=== PATIENT | male | born 1950 | race Caucasian/White ===

== ENCOUNTER → 2019-07-24 | Outpatient (REF) | payer MEDICARE ==
[2019-07-24 14:12] LABS: RHEUMATOID FACTOR QUANT < 10.0 IU/ML (<15.0)
[2019-07-24 14:24] LABS: VITAMIN B12 LEVEL 877 PG/ML (247-911)
[2019-07-24 14:26] LABS: FOLATE 9.3 NG/ML (>5.4); HEMOGLOBIN A1c 5.8 %
[2019-07-28 14:26] LABS: ANCA-ATYPICAL <1:20 titer (Neg:<1:20); ANTI DS-DNA AB <1:10 titer (.); ANTINUCLEAR ANTIBODIES DIRECT Negative (Negative); CYTOPLASMIC NEUTROP AB ANCA-C <1:20 titer (Neg:<1:20); Lyme Disease IgG/IgM Antibodie <0.91 ISR (0.00-0.90); Lyme Disease IgM Ab Quantitati <0.80 index (0.00-0.79); PERINUCLEAR AB ANCA-P <1:20 titer (Neg:<1:20); SJOGREN'S ANTI SS-A <0.2 AI (0.0-0.9); SJOGREN'S ANTI SS-B 0.4 AI (0.0-0.9); VITAMIN B1 LEVEL WHOLE BLOOD 85.7 nmol/L (66.5-200.0); VITAMIN B6,PYRIDOXAL PHOSPHATE 17.6 ug/L (5.3-46.7); VITAMIN E(ALPHA TOCOPHEROL) 10.1 mg/L (9.0-29.0); VITAMIN E(GAMMA TOCOPHEROL) 0.5 mg/L (0.5-4.9)
== END ==
LOC: M LABDRAW1 09:58
PROVIDERS: ATTEND Psychiatry & Neurology Neurology
DX: G31.9 Degenerative disease of nervous system, unspecified (principal)

== ENCOUNTER 2022-12-06 09:45 | Inpatient (IN) | payer BC, OTHER, MEDICARE ==
[~2022-12-06] VITALS: Ht 180.3 cm; Wt 86.8 kg
[2022-12-06 10:41] LABS: BASO % 0.2 % (0.0-1.0); EOS # 0.1 10^3/uL (0.0-0.5); EOS % 1.8 % (0.0-3.0); HEMATOCRIT 39.8 % (42.0-52.0); HEMOGLOBIN 13.1 g/dl (13.5-17.5); LYMPH # 0.8 10^3/uL (1.5-5.0); LYMPH % 15.9 % (24.0-44.0); MEAN CORPUSCULAR HEMOGLOBIN 34.4 pg (27.0-33.0); MEAN CORPUSCULAR HGB CONC 32.9 g/dl (32.0-36.5); MEAN CORPUSCULAR VOLUME 104.5 fl (80.0-96.0); MONO # 0.4 10^3/uL (0.0-0.8); MONO % 8.3 % (2.0-8.0); NEUTROPHILS # 3.6 10^3/uL (1.5-8.5); NEUTROPHILS % 73.4 % (36.0-66.0); PLATELET COUNT, AUTOMATED 152 10^3/uL (150-450); RED BLOOD COUNT 3.81 10^6/uL (4.30-6.10)
[2022-12-06 10:53] LABS: INR 1.31; PROTHROMBIN TIME 16.5 SECONDS (12.5-14.5)
[2022-12-06] MEDS ORDERED: LORazepam 2 MG/ML 1ML VIAL IV STA (10:53)
[2022-12-06 10:54] LABS: PARTIAL THROMBOPLASTIN TIME 31.7 SECONDS (24.8-34.2)
[2022-12-06 11:13] LABS: LIPASE 52 U/L (12-53)
[2022-12-06 11:15] LABS: ALBUMIN 3.3 G/DL (3.2-5.2); ALKALINE PHOSPHATASE 69 U/L (46-116); ALT/SGPT 23 U/L (7.0-40); AST/SGOT 26 U/L (<34); BILIRUBIN,DIRECT 0.4 MG/DL (<0.4); BILIRUBIN,TOTAL 1.1 MG/DL (0.3-1.2); BLOOD UREA NITROGEN 26 MG/DL (9-23); CALCIUM LEVEL 8.3 MG/DL (8.3-10.6); CARBON DIOXIDE LEVEL 27 MMOL/L (20-31); CHLORIDE LEVEL 106 MMOL/L (98-107); CK-MB VALUE MASS 1.5 NG/ML (<3.6); CREATININE FOR GFR 1.04 MG/DL (0.70-1.30); GLOMERULAR FILTRATION RATE > 60.0 (>42); GLUCOSE, FASTING 112 MG/DL (74-106); POTASSIUM SERUM 4.2 MMOL/L (3.5-5.1); SODIUM LEVEL 139 MMOL/L (136-145); TOTAL PROTEIN 6.2 G/DL (5.7-8.2)
[2022-12-06 11:16] LABS: CPK CREATINE PHOSPHOKINASE 102 U/L (46-171); MB/CK RELATIVE INDEX 1.47 (< OR =4)
[2022-12-06 11:17] LABS: THYROID STIMULATING HORMONE 1.492 uIU/ML (0.55-4.78)
[2022-12-06 11:18] LABS: FREE T4 0.75 NG/DL (0.89-1.76)
[2022-12-06] MEDS ORDERED: ATOR40TA75 PO (11:55)
[2022-12-06] MEDS ORDERED: METO1TAB32 PO (11:55)
[2022-12-06] MEDS ORDERED: FURO20TA2 PO (11:55)
[2022-12-06] MEDS ORDERED: DONE5TAB82 PO (11:55)
[2022-12-06] MEDS ORDERED: ELIQ5TAB PO (11:55)
[2022-12-06] MEDS ORDERED: MEMA1TAB3 PO (11:55)
[2022-12-06] MEDS ORDERED: HYDR50TA70 PO (11:55)
[2022-12-06] MEDS ORDERED: VITA100093 PO (12:20)
[2022-12-06] MEDS ORDERED: HOME MED LIST COMPLETE! XX SCH (12:25)
[2022-12-06 12:39] LABS: CK-MB VALUE MASS 1.4 NG/ML (<3.6)
[2022-12-06 12:42] LABS: MB/CK RELATIVE INDEX 1.35 (< OR =4)
[2022-12-06 13:00] LABS: RSV AMPLIFICATION NEGATIVE (NEGATIVE)
[2022-12-06] MEDS: VITAMIN D 1,000 INTERNATIONAL UNITS TABLET PO SCH (15:03)
[2022-12-06] MEDS: MEMANTINE 5MG TABLET (NAMENDA) PO SCH (15:04)
[2022-12-06 16:00] VITALS: BP 128/62
[2022-12-06] MEDS ORDERED: OLANZapine 2.5MG TABLET PO ONE (17:00)
[2022-12-06] MEDS ORDERED: OLANZapine INTRAMUSCULAR 10MG VIAL IM ONE (17:30)
[2022-12-06] MEDS: hydrOXYzine 50 MG TAB PO SCH (20:21)
[2022-12-06] MEDS: APIXABAN 5 MG TAB (ELIQUIS) PO SCH (20:21)
[2022-12-06 20:30] VITALS: BP 116/61
[2022-12-06] MEDS ORDERED: ATORVASTATIN 20 MG TAB PO SCH (21:00)
[2022-12-06] MEDS: OLANZapine INTRAMUSCULAR 10MG VIAL IM PRN (22:46)
[2022-12-07] VITALS: BP 119/62
[2022-12-07] MEDS ORDERED: diphenhydrAMINE 50MG/ML VIAL IM ONE (01:00)
[2022-12-07] MEDS ORDERED: OLANZapine INTRAMUSCULAR 10MG VIAL IM ONE (01:00)
[2022-12-07 03:56] VITALS: BP 105/56
[2022-12-07 04:05] LABS: HEMATOCRIT 39.3 % (42.0-52.0); HEMOGLOBIN 13.1 g/dl (13.5-17.5); MEAN CORPUSCULAR HEMOGLOBIN 34.3 pg (27.0-33.0); MEAN CORPUSCULAR HGB CONC 33.3 g/dl (32.0-36.5); MEAN CORPUSCULAR VOLUME 102.9 fl (80.0-96.0); PLATELET COUNT, AUTOMATED 146 10^3/uL (150-450); RED BLOOD COUNT 3.82 10^6/uL (4.30-6.10)
[2022-12-07 04:29] LABS: BLOOD UREA NITROGEN 20 MG/DL (9-23); CARBON DIOXIDE LEVEL 26 MMOL/L (20-31); CHLORIDE LEVEL 108 MMOL/L (98-107); CREATININE FOR GFR 0.92 MG/DL (0.70-1.30); GLOMERULAR FILTRATION RATE > 60.0 (>42); GLUCOSE, FASTING 92 MG/DL (74-106); PHOSPHORUS LEVEL 2.5 MG/DL (2.4-5.1); POTASSIUM SERUM 3.7 MMOL/L (3.5-5.1); SODIUM LEVEL 142 MMOL/L (136-145)
[2022-12-07] MEDS: OLANZapine INTRAMUSCULAR 10MG VIAL IM PRN (06:46)
[2022-12-07 07:50] VITALS: BP 123/64
[2022-12-07] MEDS: APIXABAN 5 MG TAB (ELIQUIS) PO SCH (09:12)
[2022-12-07] MEDS: VITAMIN D 1,000 INTERNATIONAL UNITS TABLET PO SCH (09:12)
[2022-12-07] MEDS: MEMANTINE 5MG TABLET (NAMENDA) PO SCH (09:12)
[2022-12-07 12:00] VITALS: BP 122/63
[2022-12-07] MEDS ORDERED: SCOPOLAMINE 1MG TRANSDERMAL PATCH TOP PRN (15:40)
[2022-12-07] MEDS: hydrOXYzine 50 MG TAB PO SCH (21:56)
[2022-12-08] MEDS: MEMANTINE 5MG TABLET (NAMENDA) PO SCH (08:21)
[2022-12-08] MEDS: hydrOXYzine 50 MG TAB PO SCH (20:29)
[2022-12-09] MEDS: OLANZapine INTRAMUSCULAR 10MG VIAL IM PRN (03:22)
[2022-12-09] MEDS: MEMANTINE 5MG TABLET (NAMENDA) PO SCH (10:25)
[2022-12-09] MEDS: hydrOXYzine 50 MG TAB PO SCH (21:00)
[2022-12-10] MEDS: MEMANTINE 5MG TABLET (NAMENDA) PO SCH (09:53)
[2022-12-10] MEDS: OLANZapine INTRAMUSCULAR 10MG VIAL IM PRN (19:02)
[2022-12-10] MEDS: hydrOXYzine 50 MG TAB PO SCH (20:41)
[2022-12-11] MEDS: OLANZapine INTRAMUSCULAR 10MG VIAL IM PRN (06:48)
[2022-12-11] MEDS: MEMANTINE 5MG TABLET (NAMENDA) PO SCH (08:31)
[2022-12-11] MEDS ORDERED: MORPHINE 10MG/0.5ML ORAL CONCENTRATE SOLUTION U/D SL PRN (19:40)
[2022-12-11] MEDS: LORazepam 1 MG TAB PO PRN (21:22)
[2022-12-11] MEDS: hydrOXYzine 50 MG TAB PO SCH (21:23)
[2022-12-12] MEDS: LORazepam 1 MG TAB PO PRN (03:34)
[2022-12-12] MEDS: MEMANTINE 5MG TABLET (NAMENDA) PO SCH (10:14)
[2022-12-12 18:30] VITALS: BP 114/70
[2022-12-12 20:28] LABS: HEMATOCRIT 39.2 % (42.0-52.0); HEMOGLOBIN 13.2 g/dl (13.5-17.5); MEAN CORPUSCULAR HEMOGLOBIN 34.2 pg (27.0-33.0); MEAN CORPUSCULAR HGB CONC 33.7 g/dl (32.0-36.5); MEAN CORPUSCULAR VOLUME 101.6 fl (80.0-96.0); PLATELET COUNT, AUTOMATED 176 10^3/uL (150-450); RED BLOOD COUNT 3.86 10^6/uL (4.30-6.10); WHITE BLOOD COUNT 5.6 10^3/uL (4.0-10.0)
[2022-12-12 20:55] LABS: BLOOD UREA NITROGEN 23 MG/DL (9-23); CALCIUM LEVEL 9.1 MG/DL (8.3-10.6); CARBON DIOXIDE LEVEL 24 MMOL/L (20-31); CHLORIDE LEVEL 109 MMOL/L (98-107); CREATININE FOR GFR 0.97 MG/DL (0.70-1.30); GLOMERULAR FILTRATION RATE > 60.0 (>42); GLUCOSE, FASTING 95 MG/DL (74-106); POTASSIUM SERUM 3.9 MMOL/L (3.5-5.1); SODIUM LEVEL 143 MMOL/L (136-145)
[2022-12-12] MEDS: hydrOXYzine 50 MG TAB PO SCH (21:49)
[2022-12-12 21:50] VITALS: BP 118/72
[2022-12-12] MEDS: ATORVASTATIN 20 MG TAB PO SCH (21:50)
[2022-12-12] MEDS: APIXABAN 5 MG TAB (ELIQUIS) PO SCH (21:50)
[2022-12-12] MEDS ORDERED: OLANZapine 5 MG TAB PO ONE (22:35)
[2022-12-13] MEDS: OLANZapine INTRAMUSCULAR 10MG VIAL IM PRN (01:28)
[2022-12-13 05:48] VITALS: BP 122/69
[2022-12-13] MEDS: APIXABAN 5 MG TAB (ELIQUIS) PO SCH ×2 (08:05→20:21)
[2022-12-13] MEDS: FUROSEMIDE 10MG PER 1/2 TABLET PO SCH (08:05)
[2022-12-13] MEDS: MEMANTINE 5MG TABLET (NAMENDA) PO SCH (08:05)
[2022-12-13 14:00] VITALS: BP_SYST 132; BP_SYST 133; BP_DIAS 63; BP_DIAS 80
[2022-12-13] MEDS: OLANZapine 2.5MG TABLET PO PRN (20:16)
[2022-12-13] MEDS: ATORVASTATIN 20 MG TAB PO SCH (20:16)
[2022-12-13] MEDS: hydrOXYzine 50 MG TAB PO SCH (20:22)
[2022-12-13 22:00] VITALS: BP 137/74
[2022-12-14 05:41] VITALS: BP 126/76
[2022-12-14] MEDS: FUROSEMIDE 10MG PER 1/2 TABLET PO SCH (08:48)
[2022-12-14] MEDS: MEMANTINE 5MG TABLET (NAMENDA) PO SCH (08:48)
[2022-12-14] MEDS: APIXABAN 5 MG TAB (ELIQUIS) PO SCH ×2 (08:48→20:11)
[2022-12-14 14:00] VITALS: BP 120/74
[2022-12-14] MEDS: ATORVASTATIN 20 MG TAB PO SCH (20:07)
[2022-12-14] MEDS: OLANZapine 2.5MG TABLET PO PRN (20:08)
[2022-12-14] MEDS: hydrOXYzine 50 MG TAB PO SCH (20:09)
[2022-12-14 22:00] VITALS: BP 123/76
[2022-12-15 06:00] VITALS: BP 118/70
[2022-12-15] MEDS: APIXABAN 5 MG TAB (ELIQUIS) PO SCH ×2 (08:16→20:59)
[2022-12-15] MEDS: FUROSEMIDE 10MG PER 1/2 TABLET PO SCH (08:16)
[2022-12-15] MEDS: MEMANTINE 5MG TABLET (NAMENDA) PO SCH (08:16)
[2022-12-15] MEDS: OLANZapine INTRAMUSCULAR 10MG VIAL IM PRN ×2 (19:30→19:36)
[2022-12-15 20:30] VITALS: BP 130/98
[2022-12-15] MEDS: ATORVASTATIN 20 MG TAB PO SCH (20:59)
[2022-12-15] MEDS: hydrOXYzine 50 MG TAB PO SCH (21:01)
[2022-12-16 06:00] VITALS: BP 141/71
[2022-12-16] MEDS: OLANZapine 2.5MG TABLET PO PRN (06:09)
[2022-12-16] MEDS: FUROSEMIDE 10MG PER 1/2 TABLET PO SCH (08:53)
[2022-12-16] MEDS: MEMANTINE 5MG TABLET (NAMENDA) PO SCH (08:54)
[2022-12-16] MEDS: APIXABAN 5 MG TAB (ELIQUIS) PO SCH (08:55)
[2022-12-16] MEDS ORDERED: OLAN2.5T25 PO (12:14)
== END 2022-12-16 14:28 | disposition home health service (06) | DRG 201 ==
LOC: M ED 09:45 → M ED INP 13:20 → M PCU 16:22 → M MSPAV 12-11 15:30
PROVIDERS: ADMIT Internal Medicine; ATTEND Internal Medicine
DX: R00.1 Bradycardia, unspecified (principal); F03.911 Unspecified dementia, unspecified severity, with agitation; R54 Age-related physical debility; R13.10 Dysphagia, unspecified; D53.9 Nutritional anemia, unspecified; R55 Syncope and collapse; Z66 Do not resuscitate; E78.5 Hyperlipidemia, unspecified; F41.9 Anxiety disorder, unspecified; Z87.891 Personal history of nicotine dependence; R29.6 Repeated falls; R32 Unspecified urinary incontinence; R60.0 Localized edema; Z20.822 Contact with and (suspected) exposure to COVID-19; Z79.899 Other long term (current) drug therapy; Z79.01 Long term (current) use of anticoagulants; I48.91 Unspecified atrial fibrillation

== ENCOUNTER 2023-01-20 09:41 | Emergency (ER) | payer MEDICARE, BC, OTHER ==
[~2023-01-20] VITALS: Ht 180.3 cm; Wt 80.5 kg
[~2023-01-20 09:41] MED LIST: ATOR40TA75 PO; DONE5TAB82 PO; ELIQ5TAB PO; FURO20TA2 PO; HYDR50TA70 PO; MEMA1TAB3 PO; METO1TAB32 PO; OLAN2.5T25 PO; VITA100093 PO
[2023-01-20 10:26] LABS: BASO % 0.1 % (0.0-1.0); EOS % 0.3 % (0.0-3.0); HEMOGLOBIN 12.6 g/dl (13.5-17.5); LYMPH # 0.8 10^3/uL (1.5-5.0); LYMPH % 8.4 % (24.0-44.0); MEAN CORPUSCULAR HEMOGLOBIN 34.1 pg (27.0-33.0); MEAN CORPUSCULAR HGB CONC 32.3 g/dl (32.0-36.5); MEAN CORPUSCULAR VOLUME 105.7 fl (80.0-96.0); MONO # 0.9 10^3/uL (0.0-0.8); MONO % 8.9 % (2.0-8.0); NEUTROPHILS # 7.8 10^3/uL (1.5-8.5); NEUTROPHILS % 81.9 % (36.0-66.0); PLATELET COUNT, AUTOMATED 193 10^3/uL (150-450); RED BLOOD COUNT 3.69 10^6/uL (4.30-6.10); WHITE BLOOD COUNT 9.5 10^3/uL (4.0-10.0)
[2023-01-20 11:00] LABS: BLOOD UREA NITROGEN 44 MG/DL (9-23); CALCIUM LEVEL 9.6 MG/DL (8.3-10.6); CARBON DIOXIDE LEVEL 28 MMOL/L (20-31); CHLORIDE LEVEL 109 MMOL/L (98-107); CREATININE FOR GFR 1.22 MG/DL (0.70-1.30); GLOMERULAR FILTRATION RATE > 60.0 (>42); GLUCOSE, FASTING 118 MG/DL (74-106); MAGNESIUM LEVEL 2.3 MG/DL (1.8-2.4); POTASSIUM SERUM 4.3 MMOL/L (3.5-5.1); SODIUM LEVEL 145 MMOL/L (136-145)
[2023-01-20] MEDS ORDERED: NS 1,000 ML IV ONE (11:30)
[2023-01-20] MEDS ORDERED: DEPA250T32 PO (14:49)
[2023-01-20 15:12] VITALS: BP 112/60
== END 2023-01-20 15:14 | disposition home or self-care (01) ==
LOC: M ED 09:41 → EDBD 09:41 → M ED 15:14
DX: E86.0 Dehydration (principal); G25.3 Myoclonus; F03.C0 Unspecified dementia, severe, without behavioral disturbance, psychotic disturbance, mood disturbance, and anxiety; Z79.01 Long term (current) use of anticoagulants; Z86.79 Personal history of other diseases of the circulatory system; Z79.02 Long term (current) use of antithrombotics/antiplatelets; Z79.899 Other long term (current) drug therapy